=== PATIENT | female | born 1955 | race Caucasian/White ===

== ENCOUNTER 2017-06-02 16:48 | Emergency (ER) | payer MEDICARE, MEDICAID ==
[~2017-06-02] VITALS: Ht 170.2 cm; Wt 59.0 kg
[2017-06-02] MEDS ORDERED: METOCLOPRAMIDE HCL 10 MG/2 ML VIAL IV ONE (17:45)
[2017-06-02] MEDS ORDERED: IV NORMAL SALINE 1000 ML BAG IV ONE (17:45)
[2017-06-02] MEDS ORDERED: METOCLOPRAMIDE HCL 10 MG/2 ML VIAL ONE (17:49)
--- NOTE | 2017-06-02 18:22 | NUR ---
Patient is resting comfortably in bed with eyes closed.
[2017-06-02 18:57] LABS: *BILIRUBIN,URIN NEGATIVE (NEGATIVE); *BLOOD, URINE 3+ (NEGATIVE); *CLARITY,URINE CLOUDY (CLEAR); *COLOR,URINE YELLOW (YELLOW); *KETONES,URINE NEGATIVE (NEGATIVE); *PROTEIN,URINE 2+ (NEGATIVE); *UROBILINOGEN,URINE 0.2 E.U./dl (NORMAL); LEUKOCYTE ESTERASE ,URINE 2+ (NEGATIVE); NITRITE, URINE NEGATIVE (NEGATIVE); PH,URINE 5.5 (5.0-8.0); UGLUCOSE NEGATIVE (NEGATIVE)
[2017-06-02 19:00] LABS: BACTERIA,URINE MANY /HPF (NONE SEEN); SQUAMOUS EPITHELIAL CELL,UR FEW /HPF (NONE SEEN); WBC,URINE 50-80 /HPF (0-3)
--- NOTE | 2017-06-02 19:15 | NUR ---
Patient discharged to home in stable conditon. Written and verbal after care instructions given. Patient verbalizes understanding of instructions.
[2017-06-02 19:32] VITALS: BP 119/80
== END 2017-06-02 19:30 | disposition home or self-care (01) ==
LOC: ER 16:48
DX: G43.909 Migraine, unspecified, not intractable, without status migrainosus (principal)
CPT/HCPCS: 81001; 96360; 96374; 99284; A4663; J2765; J7030

== ENCOUNTER 2017-06-09 13:42 | Emergency (ER) | payer MEDICARE, MEDICAID ==
[~2017-06-09] VITALS: Ht 170.2 cm; Wt 59.0 kg
[2017-06-09] MEDS ORDERED: IV NORMAL SALINE 1000 ML BAG IV ONE ×2 (14:15→18:15)
[2017-06-09] MEDS ORDERED: METOCLOPRAMIDE HCL 10 MG/2 ML VIAL IV ONE (14:15)
[2017-06-09] MEDS ORDERED: diphenhydrAMINE 50 MG/1 ML VIAL IV ONE (14:15)
[2017-06-09] MEDS ORDERED: diphenhydrAMINE 50 MG/1 ML VIAL ONE (14:24)
[2017-06-09] MEDS ORDERED: METOCLOPRAMIDE HCL 10 MG/2 ML VIAL ONE (14:24)
[2017-06-09 14:35] LABS: BASOPHILS # (AUTO) 0.1 K/uL (0.0-8.0); BASOPHILS % (AUTO) 1.2 % (0.0-2.0); EOSINOPHILS # (AUTO) 0.1 K/uL (0.0-0.7); EOSINOPHILS % (AUTO) 1.2 % (0.0-7.0); HEMATOCRIT 40.8 % (31.2-41.9); HEMOGLOBIN 13.5 g/dL (10.9-14.3); LYMPHOCYTES # (AUTO) 3.2 K/uL (20.0-40.0); LYMPHOCYTES % (AUTO) 29.4 % (20.5-51.5); MEAN CORPUSCULAR HEMOGLOBIN 29.9 uug (24.7-32.8); MEAN CORPUSCULAR HGB CONC 33 g/dL (32.3-35.6); MONOCYTES # (AUTO) 0.7 K/uL (2.0-10.0); MONOCYTES % (AUTO) 6.6 % (0.0-11.0); NEUTROPHILS # (AUTO) 6.7 K/uL (1.8-8.9); NEUTROPHILS % (AUTO) 61.6 % (38.5-71.5); PLATELET COUNT (AUTO) 282 K/uL (179-408); RED BLOOD CELL COUNT(AUTO) 4.53 MIL/uL (3.63-4.92); WHITE BLOOD COUNT (AUTO) 10.8 K/uL (3.8-11.8)
[2017-06-09 14:45] LABS: CREATININE 0.8 mg/dL (0.6-1.3)
[2017-06-09] MEDS ORDERED: NORMAL SALINE FLUSH 10 ML DISP.SYRIN ONE (14:54)
[2017-06-09] MEDS ORDERED: IV NORMAL SALINE 100 ML ONE (14:55)
[2017-06-09] MEDS ORDERED: IOHEXOL 300MG/ML 100 ML INFUS..BTL ONE (14:55)
[2017-06-09] MEDS ORDERED: KETOROLAC TROMETHAMINE 30 MG INJ IVP ONE (18:15)
[2017-06-09] MEDS ORDERED: KETOROLAC TROMETHAMINE 30 MG INJ ONE (18:18)
[2017-06-09 18:36] LABS: CSF GLUCOSE 54 mg/dL (40-70); CSF PROTEIN 45 mg/dL (15-45)
--- NOTE | 2017-06-09 19:21 | NUR ---
Patient discharged to home in stable conditon. Written and verbal after care instructions given. Patient verbalizes understanding of instructions.PT WALKS ION STEADY GAIT. PT ACCOMPANIED BYSO. PAIN DOWN TO TOLERALABLE LEVEL.
[2017-06-09 19:26] VITALS: BP 121/71
== END 2017-06-09 19:28 | disposition home or self-care (01) ==
LOC: ER 14:20
DX: R51 Headache (principal); M54.2 Cervicalgia
CPT/HCPCS: 36415; 62270; 70496; 70498; 80048; 82945; 84157; 85025; 87070; 87205; 96361; 96374; 96375; 99285; A4663; J1200; J1885; J2765; J3490 ×3; J7030 ×2; Q9967

== ENCOUNTER 2017-11-25 15:37 | Inpatient (IN) | payer MEDICARE, MEDICAID ==
[~2017-11-25] VITALS: Ht 170.2 cm; Wt 59.4 kg
[2017-11-25 16:11] LABS: *BILIRUBIN,URIN NEGATIVE (NEGATIVE); *BLOOD, URINE 3+ (NEGATIVE); *CLARITY,URINE CLOUDY (CLEAR); *COLOR,URINE YELLOW (YELLOW); *KETONES,URINE NEGATIVE (NEGATIVE); *PROTEIN,URINE 2+ (NEGATIVE); LEUKOCYTE ESTERASE ,URINE 3+ (NEGATIVE); NITRITE, URINE POSITIVE (NEGATIVE); UGLUCOSE NEGATIVE (NEGATIVE)
[2017-11-25 16:24] LABS: BACTERIA,URINE MODERATE /HPF (NONE SEEN); SQUAMOUS EPITHELIAL CELL,UR FEW /HPF (NONE SEEN); WBC,URINE 80-100 /HPF (0-3)
[2017-11-25 16:31] LABS: BASOPHILS # (AUTO) 0.1 K/uL (0.0-8.0); BASOPHILS % (AUTO) 0.5 % (0.0-2.0); EOSINOPHILS % (AUTO) 0.1 % (0.0-7.0); HEMATOCRIT 38.2 % (31.2-41.9); HEMOGLOBIN 12.9 g/dL (10.9-14.3); LYMPHOCYTES # (AUTO) 1.9 K/uL (20.0-40.0); LYMPHOCYTES % (AUTO) 12.9 % (20.5-51.5); MEAN CORPUSCULAR HEMOGLOBIN 29.6 uug (24.7-32.8); MEAN CORPUSCULAR HGB CONC 34 g/dL (32.3-35.6); MEAN CORPUSCULAR VOLUME 87.8 fL (75.5-95.3); MONOCYTES # (AUTO) 2.1 K/uL (2.0-10.0); MONOCYTES % (AUTO) 14.3 % (0.0-11.0); NEUTROPHILS # (AUTO) 10.7 K/uL (1.8-8.9); NEUTROPHILS % (AUTO) 72.2 % (38.5-71.5); PLATELET COUNT (AUTO) 194 K/uL (179-408); RED BLOOD CELL COUNT(AUTO) 4.35 MIL/uL (3.63-4.92); WHITE BLOOD COUNT (AUTO) 14.9 K/uL (3.8-11.8)
[2017-11-25 16:40] LABS: BILIRUBIN,DIRECT 0.2 mg/dL (0.0-0.2); BILIRUBIN,TOTAL 0.5 mg/dL (0.2-1.0); CREATININE 0.9 mg/dL (0.6-1.3); POTASSIUM 3.6 mmol/L (3.5-5.1); TOTAL PROTEIN, SERUM 6.9 g/dL (6.4-8.2)
[2017-11-25] MEDS ORDERED: CEFTRIAXONE 1 G in IV DEXTROSE 5% 50 ML IV ONE (16:45)
[2017-11-25] MEDS ORDERED: IV NORMAL SALINE 1000 ML BAG IV ONE ×3 (16:45)
[2017-11-25] MEDS ORDERED: CEFTRIAXONE 1 G VIAL ONE (16:57)
[2017-11-25] MEDS ORDERED: ACETAMINOPHEN 325 MG TABLET PO ONE (17:45)
[2017-11-25] MEDS ORDERED: ACETAMINOPHEN 325 MG TABLET ONE (18:00)
--- NOTE | 2017-11-25 18:35 | NUR ---
Patient discharged to home in stable conditon. Written and verbal after care instructions given. Patient verbalizes understanding of instructions.PT TRANSFERED TO FLOOR IN STABLE CONDITION.
--- NOTE | 2017-11-25 18:40 | NUR ---
patient arrived on unit at 1840 via gurney from ER. no family with patient. VSS upon admission. patient complaining of migraine headache starting. no medications at this time, patient only uses ice packs at home. will endorse to periodontal assistant
--- NOTE | 2017-11-25 19:54 | NUR ---
RECEIVED PATIENT ASLEEP IN BED. NO S/S OF PAIN OR DISCOMFORT. NO RESP. DISTRESS NOTED. HEPLOCK INTACT AND PATENT, NOTED TO LEFT AC #20 GAUGE. VS WNL. ON TELE SR. CALL LIGHT IN REACH. ALL NEEDS ATTENDED. WILL CONTINUE TO MONITOR AND ASSESS.
[2017-11-25 20:00] VITALS: BP 93/53
[2017-11-25] MEDS ORDERED: HYDROCODONE/APAP 5-325MG TABLET PO PRN (20:45)
[2017-11-25] MEDS ORDERED: ZOLPIDEM 5 MG TABLET PO PRN (20:45)
[2017-11-25] MEDS ORDERED: MAGNESIUM HYDROXIDE 30 ML LIQUID UDC PO PRN (20:45)
[2017-11-25] MEDS ORDERED: ACETAMINOPHEN 325 MG TABLET PO PRN (20:45)
[2017-11-25] MEDS ORDERED: Z GUARD REMEDY PASTE 57 GM TUBE TOP PRN (20:45)
[2017-11-25] MEDS: IV NS 1000 ML 1,000 ML IV PRN (21:04)
--- NOTE | 2017-11-25 21:05 | NUR ---
RECEIVED ADMITTING ORDERS. PATIENT IS ADMITTED TO MED-SURG. IVF STARTED AND INFUSING WELL TO LEFT AC #20 GAUGE. CALL LIGHT IN REACH. ALL NEEDS ATTENDED. WILL CONTINUE TO MONITOR AND ASSESS.
[2017-11-25] MEDS: TRAMADOL HCL 50 MG TABLET PO PRN (23:04)
[2017-11-26] MEDS: TRAMADOL HCL 50 MG TABLET PO PRN ×3 (04:47→17:08)
--- NOTE | 2017-11-26 04:51 | NUR ---
PATIENT HAS TEMPERATURE OF 101.1 COOLING MEASURES APPLIED AND TYLENOL 650MG PO PRN GIVEN, PATIENT ALSO C/O MIGRAINE PAIN. PATIENT GIVEN ULTRAM 50MG PO PRN FOR PAIN. WILL CONTINUE TO MONITOR AND ASSESS.
[2017-11-26 04:52] VITALS: BP 131/78
--- NOTE | 2017-11-26 06:00 | NUR ---
RECHECKED PATIENTS TEMPERATURE, 98.1
[2017-11-26 06:33] LABS: BASOPHILS % (AUTO) 0.2 % (0.0-2.0); EOSINOPHILS % (AUTO) 0.1 % (0.0-7.0); HEMATOCRIT 33.8 % (31.2-41.9); HEMOGLOBIN 11.4 g/dL (10.9-14.3); LYMPHOCYTES % (AUTO) 13.2 % (20.5-51.5); MEAN CORPUSCULAR HEMOGLOBIN 30.5 uug (24.7-32.8); MEAN CORPUSCULAR HGB CONC 34 g/dL (32.3-35.6); MEAN CORPUSCULAR VOLUME 90.1 fL (75.5-95.3); MONOCYTES # (AUTO) 1.5 K/uL (2.0-10.0); MONOCYTES % (AUTO) 9.7 % (0.0-11.0); NEUTROPHILS # (AUTO) 11.7 K/uL (1.8-8.9); NEUTROPHILS % (AUTO) 76.8 % (38.5-71.5); PLATELET COUNT (AUTO) 175 K/uL (179-408); RED BLOOD CELL COUNT(AUTO) 3.75 MIL/uL (3.63-4.92); WHITE BLOOD COUNT (AUTO) 15.3 K/uL (3.8-11.8)
[2017-11-26 06:58] LABS: CREATININE 0.8 mg/dL (0.6-1.3); MAGNESIUM 1.7 mg/dL (1.8-2.4); PHOSPHOROUS 2.1 mg/dL (2.5-4.9); POTASSIUM 3.4 mmol/L (3.5-5.1)
[2017-11-26] MEDS: ONDANSETRON 4 MG/2 ML VIAL IV PRN ×2 (10:22→17:08)
[2017-11-26] MEDS: IV NS 1000 ML 1,000 ML IV PRN (10:23)
[2017-11-26] MEDS ORDERED: MAGNESIUM SULFATE/D5W 100 ML IV SCH (10:45)
[2017-11-26 11:43] VITALS: BP 100/62
[2017-11-26] MEDS: POTASSIUM PHOSPHATE MM 7.5 MMOL in IV DEXTROSE 5% 100 ML IV SCH ×2 (12:05→14:41)
[2017-11-26] MEDS ORDERED: IBUPROFEN 200 MG TABLET PO PRN (15:00)
[2017-11-26 15:44] VITALS: BP 121/71
[2017-11-26] MEDS ORDERED: CEFTRIAXONE 1 G in IV DEXTROSE 5% 50 ML IV SCH (17:00)
--- NOTE | 2017-11-26 19:45 | NUR ---
PT IS IN NO ACUTE DISTRESS AT THIS TIME. OBSERVED RESTING.
[2017-11-26 20:21] VITALS: BP 108/50
[2017-11-27] MEDS: IV NS 1000 ML 1,000 ML IV PRN (04:49)
[2017-11-27 05:14] VITALS: BP 122/81
[2017-11-27 05:54] LABS: CREATININE 0.5 mg/dL (0.6-1.3); MAGNESIUM 1.9 mg/dL (1.8-2.4); PHOSPHOROUS 2.7 mg/dL (2.5-4.9); POTASSIUM 3.7 mmol/L (3.5-5.1)
[2017-11-27 06:27] LABS: BASOPHILS # (AUTO) 0.1 K/uL (0.0-8.0); BASOPHILS % (AUTO) 0.5 % (0.0-2.0); EOSINOPHILS # (AUTO) 0.1 K/uL (0.0-0.7); EOSINOPHILS % (AUTO) 0.7 % (0.0-7.0); HEMATOCRIT 34.4 % (31.2-41.9); HEMOGLOBIN 11.6 g/dL (10.9-14.3); LYMPHOCYTES # (AUTO) 2.4 K/uL (20.0-40.0); LYMPHOCYTES % (AUTO) 17.7 % (20.5-51.5); MEAN CORPUSCULAR HEMOGLOBIN 29.7 uug (24.7-32.8); MEAN CORPUSCULAR HGB CONC 34 g/dL (32.3-35.6); MEAN CORPUSCULAR VOLUME 88.5 fL (75.5-95.3); MONOCYTES % (AUTO) 7.2 % (0.0-11.0); NEUTROPHILS # (AUTO) 9.8 K/uL (1.8-8.9); NEUTROPHILS % (AUTO) 73.9 % (38.5-71.5); PLATELET COUNT (AUTO) 194 K/uL (179-408); RED BLOOD CELL COUNT(AUTO) 3.89 MIL/uL (3.63-4.92); WHITE BLOOD COUNT (AUTO) 13.3 K/uL (3.8-11.8)
[2017-11-27] MEDS ORDERED: SULF1TAB48 PO (11:00)
[2017-11-27 11:39] VITALS: BP 103/67
--- NOTE | 2017-11-27 12:46 | NUR ---
DISCHARGE COMPLETE, PATIENT STATES TRYING TO FIND A RIDE, WILL NOTIFY WHEN FRIEND RESPONDS
--- NOTE | 2017-11-27 15:30 | NUR ---
DISCHARGE PROTOCOL FOLLOWED, PATIENT EDUCATION PROVIDED, OPPORTUNITIES FOR SON AND PATIENT TO ASK QUESTIONS, VERBALIZED UNDERSTANDING OF DISCHARGE INSTRUCTIONS, IV REMOVED WITH NO REDNESS OR IRRITATION, ALL BELONGINGS ACCOUNTED FOR AND SENT WITH PATIENT, PATIENT TAKEN DOWN IN WHEELCHAIR
== END 2017-11-27 15:26 | disposition home or self-care (01) | DRG 872 ==
LOC: ER 15:39 → TELE 18:12 → MED 21:37
PROVIDERS: ADMIT Internal Medicine; ATTEND Nurse Practitioner Acute Care
DX: A41.9 Sepsis, unspecified organism (principal); N10 Acute pyelonephritis; E87.1 Hypo-osmolality and hyponatremia; B96.20 Unspecified Escherichia coli [E. coli] as the cause of diseases classified elsewhere; E87.6 Hypokalemia; E83.42 Hypomagnesemia; E88.09 Other disorders of plasma-protein metabolism, not elsewhere classified; G43.909 Migraine, unspecified, not intractable, without status migrainosus; E83.39 Other disorders of phosphorus metabolism; E86.1 Hypovolemia
CPT/HCPCS: 36415; 71045; 76770; 83605; 83690; 83735; 84100; 85025; 87040; 87077; 87086; A4663; J0696; J2405; J3475; J3490; J7030; J7060

== ENCOUNTER 2022-03-25 02:37 | Emergency (ER) | payer MEDICARE, OTHER ==
[~2022-03-25] VITALS: Ht 170.2 cm; Wt 68.0 kg
[~2022-03-25 02:37] MED LIST: SULF1TAB48 PO
[2022-03-25] MEDS ORDERED: BACITRACIN ZINC OINT 15 GM TUBE TOP ONE (02:45)
[2022-03-25] MEDS ORDERED: CEFTRIAXONE 1 G in IV DEXTROSE 5% 50 ML IV ONE (03:15)
[2022-03-25] MEDS ORDERED: KETOROLAC TROMETHAMINE 30 MG INJ IVP ONE (03:15)
[2022-03-25] MEDS ORDERED: IV NS 1000 ML 1,000 ML IV ONE ×2 (03:15)
[2022-03-25 03:32] LABS: HEMATOCRIT 39.4 % (31.2-41.9); MEAN CORPUSCULAR VOLUME 88.8 fL (75.5-95.3); PLATELET COUNT (AUTO) 208 K/uL (179-408)
[2022-03-25 03:36] LABS: CREATININE 0.9 mg/dL (0.6-1.3); POTASSIUM 3.9 mmol/L (3.5-5.1)
[2022-03-25] MEDS ORDERED: KETOROLAC TROMETHAMINE 30 MG INJ ONE ×2 (03:39→06:05)
[2022-03-25 03:42] LABS: BILIRUBIN,DIRECT 0.1 mg/dL (0.0-0.2); BILIRUBIN,TOTAL 0.3 mg/dL (0.2-1.0); TOTAL PROTEIN, SERUM 6.7 g/dL (6.4-8.2)
[2022-03-25] MEDS ORDERED: LORAZEPAM 1 MG TABLET ONE (04:42)
[2022-03-25] MEDS ORDERED: MAGNESIUM SULFATE/D5W 100 ML IV SCH (04:45)
[2022-03-25] MEDS ORDERED: MAGNESIUM SULFATE/D5W 0 ML ONE (05:31)
[2022-03-25] MEDS ORDERED: MAGNESIUM SULFATE/D5W 100 ML ONE (06:05)
--- NOTE | 2022-03-25 06:30 | NUR ---
PT IS ASLEEP ON GURNEY. FIRST BAG OF MAGNESIUM INFUSING ORDERED. HR 102 TEMP 100. INFORMED
--- NOTE | 2022-03-25 07:32 | NUR ---
Second bag of magnesium cancelled by Dr Leon. Pt tolerated all administered medication Pt denies pain. Resp is unlabored.
[2022-03-25 07:42] LABS: *BILIRUBIN,URIN NEGATIVE (NEGATIVE); *BLOOD, URINE 1+ (NEGATIVE); *CLARITY,URINE SLIGHTLY CLOUDY (CLEAR); *COLOR,URINE YELLOW (YELLOW); *KETONES,URINE NEGATIVE (NEGATIVE); LEUKOCYTE ESTERASE ,URINE NEGATIVE (NEGATIVE); NITRITE, URINE POSITIVE (NEGATIVE); UGLUCOSE NEGATIVE (NEGATIVE)
[2022-03-25 07:45] VITALS: BP 123/63
[2022-03-25 08:11] LABS: BACTERIA,URINE MANY /HPF (NONE SEEN); SQUAMOUS EPITHELIAL CELL,UR FEW /HPF (NONE SEEN); WBC,URINE 0-3 /HPF (0-3)
== END 2022-03-25 07:15 | disposition home or self-care (01) ==
LOC: ER 02:37
DX: B34.9 Viral infection, unspecified (principal); E83.42 Hypomagnesemia; E87.1 Hypo-osmolality and hyponatremia; F17.210 Nicotine dependence, cigarettes, uncomplicated; R00.0 Tachycardia, unspecified; R32 Unspecified urinary incontinence; R05.9 Cough, unspecified
CPT/HCPCS: 99284; 96365; 71045; 96375; 99406; 80076; 80048; 81001; 83735; 85025; 87040 ×2; 36415; 83605; J1885; J3475; J7040; A4663